=== PATIENT | male | born 1985 | race Caucasian/White ===

== ENCOUNTER 2024-04-16 20:03 | Emergency (ER) | payer SELFPAY ==
[2024-04-16] MEDS ORDERED: NA CHLORIDE 0.9% 1,000 ML ONE ×2 (20:45→20:46)
[2024-04-16] MEDS ORDERED: LORazepam 2 MG/ML VIAL ONE (20:45)
[2024-04-16 20:49] LABS: Absolute Lymphocytes (CBC) 2.6 K/uL (0.7-4.9); Absolute Monocytes 1.8 K/uL (0.1-1.3); Absolute Neutrophil 10.1 K/uL (1.8-8.0); Basophils % 0.2 % (0-1.3); Eosinophils % 0.3 % (0-4.4); Hematocrit 45.9 % (39.6-49.0); Hemoglobin 15.1 g/dL (13.6-17.9); Lymphocytes % 17.8 % (15.3-44.8); MCH 30.1 pg (27.0-35.0); MCV 91.4 fL (80-100); MPV 8.4 fL (7.6-11.3); Monocytes % 12.1 % (3.3-12.3); Neutrophils % 69.6 % (41.7-73.7); Platelets 375 thou/uL (152-406); RBC Red Blood Cell Count 5.03 M/uL (4.33-5.43); Red Cell Distribution Width 13.5 % (12.1-15.2)
[2024-04-16 20:52] LABS: PT Prothrombin Time 11.9 SECONDS (9.4-12.5); PTT, Activated Partial Thromb 34.6 SECONDS (24.3-36.9); Protime INR 1.06
[2024-04-16 20:58] LABS: ALT/SGPT 81 U/L (16-61); AST/SGOT 42 U/L (15-37); Albumin 4.8 g/dL (3.4-5.0); Albumin/Globulin Ratio 1.1 (1.1-1.8); Alkaline Phosphatase 97 U/L (45-117); Anion Gap 11.9 mEq/L (5.0-15.0); BUN Blood Urea Nitrogen 27 mg/dL (7-18); Bicarbonate 25 mEq/L (21-32); Bilirubin Total 0.5 mg/dL (0.2-1.0); Globulin 4.5 g/dL (2.3-3.5); Glomerular Filtration Rate 46 ml/min (=/>90); Glucose Level 96 mg/dL (74-106); Potassium 3.9 mEq/L (3.5-5.1); Protein, Total 9.3 g/dL (6.4-8.2); Sodium Level 137 mEq/L (136-145)
[2024-04-16 21:01] LABS: Bilirubin Direct < 0.2 mg/dL (0-0.2); Bilirubin Indirect, Calculated 0.3 mg/dL (0.2-0.8)
--- NOTE | 2024-04-16 22:10 | ER ---
Nurse's Notes [facility] Name: Deny Tenorio Age: 39 yrs Sex: Male : 1985 Arrival Date: 04/16/2024 Time: 20:03 Bed 14 Private MD: Diagnosis: Restlessness and agitation Presentation: 04/16 20:18 Chief complaint: EMS states: At mall talking to himself. Mall called police issued a vc1 CTW. Pt stated he needed to come to ER to refill his seizure medication. 20:18 Chief complaint: Patient states: I have kidney issues and I am having pain. I have been vc1 walking all day and I am dehydrated. Coronavirus screen: Client denies travel out of the [place] in the last 14 days. At this time, the client does not indicate any symptoms associated with coronavirus-19. Ebola Screen: Patient negative for fever greater than or equal to 101.5 degrees Fahrenheit, and additional compatible Ebola Virus Disease symptoms Patient denies exposure to infectious person. Patient denies travel to an Ebola-affected area in the 21 days before illness onset. No symptoms or risks identified at this time. Risk Assessment: Do you want to hurt yourself or someone else? Patient reports no desire to harm self or others. Onset of symptoms is unknown. 20:18 Method Of Arrival: EMS: [facility] vc1 20:18 Acuity: HEMANT 3 vc1 22:16 Initial Sepsis Screen: Does the patient meet any 2 criteria? No. Patient's initial cp4 sepsis screen is negative. Does the patient have a suspected source of infection? No. Patient's initial sepsis screen is negative. Triage Assessment: 20:54 General: Appears in no apparent distress. slender, unkempt, Behavior is anxious, vc1 restless. Pain: Complains of pain in posterior aspect of right lateral abdomen Pain does not radiate. EENT: No deficits noted. No signs and/or symptoms were reported regarding the EENT system. Neuro: Level of Consciousness is awake, alert, Oriented to person, place. Cardiovascular: No deficits noted. Respiratory: Airway is patent Respiratory effort is even, unlabored, Respiratory pattern is regular, symmetrical. GI: Abdomen is flat. : No deficits noted. No signs and/or symptoms were reported regarding the genitourinary system. Derm: Skin is intact, is healthy with good turgor, Skin is dry, Skin is normal, Skin temperature is warm. Musculoskeletal: Circulation, motion, and sensation intact. Historical: - Allergies: 20:18 No Known Allergies; vc1 - PMHx: 20:18 Bipolar disorder; multiple personalities; Schizophrenia; "kidney issues"; vc1 - PSHx: 20:18 None; vc1 - Immunization history:: Adult Immunizations unknown, Last tetanus immunization: unknown. - Infectious Disease History:: Denies. - Social history:: Smoking status: Patient reports the use of cigarette tobacco products, unknown amount Patient uses street drugs, marijuana, Smoking status: Patient reports the use of cigarette tobacco products, smokes one pack cigarettes per day. - Family history:: not pertinent. Screenin:52 [facility] ED Fall Risk Assessment (Adult) History of falling in the last 3 months, cp4 including since admission No falls in past 3 months (0 pts) Confusion or Disorientation No (0 pts) Intoxicated or Sedated No (0 pts) Impaired Gait No (0 pts) Mobility Assist Device Used No (0 pt) Altered Elimination No (0 pt) Score/Fall Risk Level 0 - 2 = Low Risk Oriented to surroundings, Maintained a safe environment, Assessed \\T\\ reinforced patient's understanding of fall precautions, Hourly rounding (assess needs \\T\\ fall precautionary measures) done. Abuse screen: Denies threats or abuse. Nutritional screening: No deficits noted. Tuberculosis screening: No symptoms or risk factors identified. Assessment: 20:50 General: Appears slender, unkempt, Behavior is agitated, anxious, restless. Pain: cp4 Denies pain. Neuro: Level of Consciousness is awake, alert, obeys commands, Oriented to person, place, time, situation. Cardiovascular: Rhythm is regular. Respiratory: Airway is patent Respiratory effort is even, unlabored. GI: No signs and/or symptoms were reported involving the gastrointestinal system. : No signs and/or symptoms were reported regarding the genitourinary system. EENT: No signs and/or symptoms were reported regarding the EENT system. Derm: No signs and/or symptoms reported regarding the dermatologic system. Musculoskeletal: No signs and/or symptoms reported regarding the musculoskeletal system. 21:59 Reassessment: Patient keeps asking to use the phone. Patient told he will have to wait tm6 until discharge due to patient getting upset every time he makes a call. Patient starts yelling and cussing on phone. Reassessment: Patient refusing to stay in room. States he needs to go to the bathroom but stands in the hallway talking. Patient told he must stay in room. 22:00 Reassessment: Pt states he is out of his Tegretol and requests a prescription. vc1 22:10 Reassessment: Provider in the room when yelling erupted. Code Larry called. Patient cp4 states "doctor doesn't know what he is talking about. There is something wrong with me. I am mentally disabled." Patient refusing to leave the ED. Security escorted out patient. 22:13 Reassessment: Unable to get discharge vitals due to patient aggression. cp4 22:30 Reassessment: GAGE Dang reported to this nurse that as she was walking by patients room vc1 pt had his penis in his hand out of his pants. Pt stated "sorry ma'am" and nurse walked away. Pt had already been discharged when nurse reported to this nurse what happened. Vital Signs: 21:21 BP 131 / 109; Pulse 109; Resp 20; Pulse Ox 99% ; cp4 [place] Coma Score: 04/17 05:48 Eye Response: spontaneous(4). Motor Response: obeys commands(6). Verbal Response: sp4 oriented(5). Total: 15. ED Course: 04/16 20:18 Patient arrived in ED. vc1 20:18 Kyle Watson MD is Attending Physician. sp4 20:50 Triage completed. vc1 20:52 Bed in low position. Call light in reach. Side rails up X 1. cp4 20:52 No provider procedures requiring assistance completed. Inserted saline lock: 20 gauge cp4 in right antecubital area, using aseptic technique. Blood collected. Flushed with 10 mL NS. 20:56 Arm band placed on right wrist. vc1 22:15 Provided Education on: dehydration. cp4 22:15 intact, bleeding controlled, No redness/swelling at site. Pressure dressing applied. cp4 Administered Medications: 20:49 Not Given (Physician Discretion): lorazepam2 mg PO once cp4 20:50 Drug: NS 0.9% IV 1000 ml IV at 1 bolus Per protocol; 1000 mL bolus Route: IV; Rate: 1 cp4 bolus; Site: right antecubital; 22:18 Follow up: Response: No adverse reaction; IV Status: Completed infusion cp4 20:50 Drug: Ativan IVP 1 mg IVP once Route: IVP; Site: right antecubital; cp4 21:15 Follow up: Response: No adverse reaction cp4 22:18 Not Given (Physician Discretion): ns 0.9% 1000 ml IV at 1 bolus Per protocol; 1000 mL cp4 bolus Medication: 20:52 VIS not applicable for this client. cp4 Outcome: 22:09 Discharge ordered by . sp4 22:15 Discharged to home ambulatory, cp4 22:15 Condition: stable 22:15 Discharge instructions given to patient, Instructed on discharge instructions, follow up and referral plans. medication usage, Demonstrated understanding of instructions, follow-up care, medications, Prescriptions given X 1, 22:17 Patient left the ED. cp4 Signatures: Ana Jeffrey RN RN vc1 Kyle Watson MD MD sp4 Yaneth Johnson cp4 Pablo Mccarthy RN RN tm6
--- NOTE | 2024-04-16 22:10 | EDPHYS ---
Physician Documentation [facility] Name: Deny Tenorio Age: 39 yrs Sex: Male : 1985 Arrival Date: 04/16/2024 Time: 20:03 Bed 14 Private MD: ED Physician Kyle Watson HPI: 04/16 20:19 This 39 yrs old Male presents to ER via Unassigned with complaints of sp4 agitation . 04/17 05:48 Patient brought in by EMS for complaint of dehydration secondary to walking several sp4 miles . Patient also complains of history of seizure disorder and request prescription for Tegretol. Patient is visibly agitated appears intoxicated on stimulant. . Historical: - Allergies: 04/16 20:18 No Known Allergies; vc1 - PMHx: 20:18 Bipolar disorder; multiple personalities; Schizophrenia; "kidney issues"; vc1 - PSHx: 20:18 None; vc1 - Immunization history:: Adult Immunizations unknown, Last tetanus immunization: unknown. - Infectious Disease History:: Denies. - Social history:: Smoking status: Patient reports the use of cigarette tobacco products, unknown amount Patient uses street drugs, marijuana, Smoking status: Patient reports the use of cigarette tobacco products, smokes one pack cigarettes per day. - Family history:: not pertinent. ROS: 04/17 05:48 Constitutional: Negative for fever, chills, and weight loss, positive for complaint of sp4 dehydration and positive for agitation All other systems are negative, Exam: 05:48 Constitutional: This is a well developed, well nourished patient who is awake, alert, sp4 visibly agitated, disruptive , uncooperative Head/Face: Normocephalic, atraumatic. Eyes: Pupils equal round and reactive to light, extra-ocular motions intact. Lids and lashes normal. Conjunctiva and sclera are not injected. Cornea within normal limits. Periorbital areas with no swelling, redness, or edema. ENT: Nares patent. No nasal discharge, no septal abnormalities noted. Tympanic membranes are normal and external auditory canals are clear. Oropharynx with no redness, swelling, or masses, exudates, or evidence of obstruction, uvula midline. Mucous membranes moist. Neck: Trachea midline, no thyromegaly or masses palpated, and no cervical lymphadenopathy. Supple, full range of motion without nuchal rigidity, or vertebral point tenderness. Chest/axilla: Normal chest wall appearance and motion. Nontender with no deformity. No lesions are appreciated. Cardiovascular: Regular rate and rhythm with a normal S1 and S2. No gallops, murmurs, or rubs. Normal PMI, no JVD. No pulse deficits. Respiratory: Lungs have equal breath sounds bilaterally, clear to auscultation and percussion. No rales, rhonchi or wheezes noted. No increased work of breathing, no retractions or nasal flaring. Abdomen/GI: Soft, with normal bowel sounds. No distension or tympany. No guarding or rebound. No evidence of tenderness throughout. Back: No spinal tenderness. No costovertebral tenderness. Skin: Warm, dry with normal turgor. Normal color with no rashes, no lesions, and no evidence of cellulitis. MS/ Extremity: Pulses equal, no cyanosis. Neurovascular intact. Full, normal range of motion. Neuro: Awake and alert, GCS 15, oriented to person, place, time, and situation. Cranial nerves II-XII grossly intact. Motor strength 5/5 in all extremities. Sensory grossly intact. Psych: Awake, alert, with orientation to person, place , agitated, appears intoxicated stimulants 05:52 ECG was reviewed by the Attending Physician. EKG at 2050 reveals sinus tachycardia rate sp4 117, rightward axis otherwise normal Vital Signs: 04/16 21:21 BP 131 / 109; Pulse 109; Resp 20; Pulse Ox 99% ; cp4 [place] Coma Score: 04/17 05:48 Eye Response: spontaneous(4). Motor Response: obeys commands(6). Verbal Response: sp4 oriented(5). Total: 15. MDM: 04/16 20:20 Patient medically screened. sp4 04/17 05:48 Differential diagnosis: drug withdrawal. acute psychotic break, depression, psychosis sp4 secondary to non-compliance. Data reviewed: vital signs, nurses notes, EMS record, old medical records, lab test result(s), electrolytes, hepatic panel. 05:51 Consideration of Admission/Observation Escalation of care including sp4 admission/observation considered. ED course: At one point patient became highly uncooperative and very disruptive. He has refused additional Ativan for agitation. Patient has exposed his genitalia to the female nurse. Patient was informed that he is being discharged from the emergency room. In the waiting ER area patient became more disruptive and the police was called to the waiting room. . 04/16 20:19 Order name: Acetaminophen; Complete Time: 22:05 sp4 04/16 20:19 Order name: Basic Metabolic Panel; Complete Time: 22:05 sp4 04/16 20:19 Order name: CBC with Diff; Complete Time: 22:05 sp4 04/16 20:19 Order name: ETOH Level; Complete Time: 22:05 sp4 04/16 20:19 Order name: Hepatic Function; Complete Time: 22:05 sp4 04/16 20:19 Order name: PT-INR; Complete Time: 22:05 sp4 04/16 20:19 Order name: Ptt, Activated; Complete Time: 22:05 sp4 04/16 20:19 Order name: Salicylate; Complete Time: 22:05 sp4 04/16 20:19 Order name: EKG - Nurse/Tech; Complete Time: 20:50 sp4 04/16 20:19 Order name: IV Saline Lock; Complete Time: 20:34 sp4 04/16 20:19 Order name: Labs collected and sent; Complete Time: 20:34 sp4 04/16 20:19 Order name: Suicide Screening ([place]); Complete Time: 20:39 sp4 EC:52 Rate is 117 beats/min. Rhythm is regular, Sinus tachycardia. Right axis deviation sp4 noted. DC interval is normal. QRS interval is normal. QT interval is normal. No Q waves. T waves are Normal. No ST changes noted. Clinical impression: No evidence of ischemia. Interpreted by me. Reviewed by me. Administered Medications: 04/16 20:49 Not Given (Physician Discretion): lorazepam2 mg PO once cp4 20:50 Drug: NS 0.9% IV 1000 ml IV at 1 bolus Per protocol; 1000 mL bolus Route: IV; Rate: 1 cp4 bolus; Site: right antecubital; 22:18 Follow up: Response: No adverse reaction; IV Status: Completed infusion cp4 20:50 Drug: Ativan IVP 1 mg IVP once Route: IVP; Site: right antecubital; cp4 21:15 Follow up: Response: No adverse reaction cp4 22:18 Not Given (Physician Discretion): ns 0.9% 1000 ml IV at 1 bolus Per protocol; 1000 mL cp4 bolus Disposition Summary: 04/16/24 22:09 Discharge Ordered Notes: Location: Home sp4 Problem: new sp4 Symptoms: have improved sp4 Condition: Stable sp4 Diagnosis - Restlessness and agitation sp4 Followup: sp4 - With: Private Physician - When: 7 - 10 days - Reason: Recheck today's complaints Discharge Instructions: - Discharge Summary Sheet sp4 - Seizure, Adult, [id number] sp4 Forms: - Patient Portal Instructions sp4 Prescriptions: - Tegretol XR 400 mg Oral Tablet, Extended Release 12 hr - take 2 tablet ORAL route every 12 hours for 30 days; 120 tablet; Refills: 0, sp4 Product Selection Permitted Signatures: Dispatcher [employer] EDAna Chavez RN RN vc1 Kyle Watson MD MD sp4 Yaneth Johnson cp4 Corrections: (The following items were deleted from the chart) 20:20 20:20 ACETAMINOPHEN+C.LAB.BRZ ordered. EDMS EDMS 20:20 20:20 BASIC METABOLIC PANEL+C.LAB.BRZ ordered. EDMS EDMS 20:20 20:20 CBC+H.LAB.BRZ ordered. EDMS EDMS 20:20 20:20 ETHANOL+C.LAB.BRZ ordered. EDMS EDMS 20:20 20:20 HEPATIC FUNCTION+C.LAB.BRZ ordered. EDMS EDMS 20:20 20:20 PROTIME (+INR)+COAG.LAB.BRZ ordered. EDMS EDMS 20:20 20:20 PTT, ACTIVATED+COAG.LAB.BRZ ordered. EDMS EDMS 20:20 20:20 SALICYLATE+C.LAB.BRZ ordered. EDMS EDMS 20:20 20:20 Urinalysis+U.LAB.BRZ ordered. EDMS EDMS 20:20 20:20 URINE DRUG SCREEN+UC.LAB.BRZ ordered. EDMS EDMS
[2024-04-16 22:37] VITALS: BP 131/109; O2SAT 99
--- NOTE | 2024-04-17 13:59 | EKG ---
Test Date: 2024-04-16 Test Time: 20:51:29 Bindery Machine Operator: MEASUREMENT RESULTS: Intervals: Rate: 117 MT: 124 QRSD: 88 QT: 318 QTc: 443 [place]: P: 84 MT: 124 QRS: 91 T: 81 INTERPRETIVE STATEMENTS: Sinus tachycardia Right atrial enlargement Rightward axis Pulmonary disease pattern Abnormal ECG No previous ECG available for comparison Electronically Signed On 04-17-24 13:57:45 CDT by Jaxson Zheng
== END 2024-04-16 22:17 | disposition home or self-care (01) ==
LOC: ER 20:03
DX: R45.1 Restlessness and agitation (principal); F20.9 Schizophrenia, unspecified
CPT/HCPCS: 36415; 80048; 80076; 80143; 80179; 82077; 85025; 85610; 85730; 93005; 96361; 96374; 99284; J7030